=== PATIENT | male | born 1960 | race Caucasian/White ===

== ENCOUNTER 2019-11-03 13:01 | Outpatient (RCR) | payer SELFPAY ==
[2019-11-03 13:42] LABS: Prothrombin Time 22.4 Seconds (11.1-14.7)
== END 2020-02-01 23:59 | disposition home or self-care (01) ==
LOC: ANHLAB 13:01
PROVIDERS: Visit Provider Internal Medicine Cardiovascular Disease
DX: Z51.81 Encounter for therapeutic drug level monitoring (principal); I48.91 Unspecified atrial fibrillation; Z79.01 Long term (current) use of anticoagulants
CPT/HCPCS: 36415; 85610

== ENCOUNTER 2021-08-09 11:00 | Outpatient (CLI) | payer SELFPAY ==
--- NOTE | ~2021-08-09 | XR_ITS ---
EXAMINATION: XR chest 2V DATE: 08/09/2021 11:36 INDICATION: Long-term amiodarone use TECHNIQUE: PA and lateral views of the chest are obtained. COMPARISON: 09/26/2019 FINDINGS: The lungs are free of acute opacities. Calcified pulmonary nodules are consistent with old granulomatous disease. There is no pleural effusion or pneumothorax. The cardiomediastinal silhouett e is normal. There is moderate thoracic spondylosis. IMPRESSION: 1. No acute cardiopulmonary abnormality. Reviewed, dictated and finalized at location B.
[2021-08-09 11:59] LABS: Basophils Percent Auto 0.5 % (0.2-1.2); Eosinophils Absolute Auto 0.2 K/mm3 (0-0.3); Eosinophils Percent Auto 2.4 % (0-4.4); Hematocrit 47.5 % (42.0-52.0); Hemoglobin 15.7 g/dL (14.0-18.0); Immature Granulocyte Absolute 0.02 K/mm3 (0.00-0.031); Immature Granulocyte Percent A 0.3 % (0-0.5); Lymphocytes Absolute Auto 2.46 K/mm3 (0.9-3.2); Lymphocytes Percent Auto 32.9 % (18.3-44.2); Mean Corpuscular HGB Conc 33.1 g/dl (32-36); Mean Corpuscular Hemoglobin 30.5 pg (26-34); Mean Corpuscular Volume 92.2 fl (80-100); Mean Platelet Volume 11.3 fl (7.4-10.4); Monocytes Percent Auto 12.9 % (2.6-8.5); Neutrophils Absolute Auto 3.8 K/mm3 (1.3-6.7); Platelet Count Result 185 k/mm3 (150-375); Red Blood Count 5.15 M/mm3 (4.6-6.20); Red Cell Distribution Width 13.4 % (11.5-14.5); White Blood Count 7.5 K/mm3 (4.5-10.0)
[2021-08-09 12:13] LABS: Anion Gap 8 mmol/L (8-16); Blood Urea Nitrogen 16 mg/dL (9-20); Calcium 9.8 mg/dL (8.4-10.2); Carbon Dioxide 26 mmol/L (22-30); Chloride 107 mmol/L (98-107); Estimated Glomerular Filt Rate > 60; Glucose 98 mg/dL (65-110); Potassium 3.8 mmol/L (3.4-5.0); Sodium 141 mmol/L (137-145)
[2021-08-09 15:12] LABS: Free T4 Free Thyroxine Reflex 1.39 ng/dL (0.78-2.19)
[2021-08-09 16:04] LABS: Total Triiodothyronine (T3) 1.56 NG/ML (0.97-1.69)
== END 2021-08-09 11:01 | disposition home or self-care (01) ==
PROVIDERS: Visit Provider Internal Medicine Cardiovascular Disease
DX: I48.0 Paroxysmal atrial fibrillation (principal); I10 Essential (primary) hypertension; Z51.81 Encounter for therapeutic drug level monitoring; Z79.899 Other long term (current) drug therapy; Z91.89 Other specified personal risk factors, not elsewhere classified; M47.814 Spondylosis without myelopathy or radiculopathy, thoracic region
CPT/HCPCS: 36415; 71046; 80048; 84439; 84443; 84480; 85025

== ENCOUNTER 2023-06-27 17:41 | Outpatient (CLI) | payer OTHER, SELFPAY ==
[2023-06-27 18:08] LABS: Basophils Percent Auto 0.5 % (0.2-1.2); Eosinophils Absolute Auto 0.3 K/mm3 (0-0.3); Eosinophils Percent Auto 3.8 % (0-4.4); Hematocrit 47.7 % (42.0-52.0); Hemoglobin 15.3 g/dL (14.0-18.0); Immature Granulocyte Absolute 0.02 K/mm3 (0.00-0.031); Immature Granulocyte Percent A 0.2 % (0-0.5); Lymphocytes Absolute Auto 3.07 K/mm3 (0.9-3.2); Lymphocytes Percent Auto 37.6 % (18.3-44.2); Mean Corpuscular HGB Conc 32.1 g/dl (32-36); Mean Corpuscular Hemoglobin 30.7 pg (26-34); Mean Corpuscular Volume 95.6 fl (80-100); Mean Platelet Volume 10.4 fl (7.4-10.4); Monocytes Absolute Auto 1.1 K/mm3 (0.1-0.6); Neutrophils Absolute Auto 3.7 K/mm3 (1.3-6.7); Neutrophils Percent Auto 44.9 % (45.5-73.1); Platelet Count Result 173 k/mm3 (150-375); Red Blood Count 4.99 M/mm3 (4.6-6.20); Red Cell Distribution Width 13.4 % (11.5-14.5); White Blood Count 8.2 K/mm3 (4.5-10.0)
[2023-06-27 18:20] LABS: Anion Gap 12 mmol/L (8-16); Blood Urea Nitrogen 24 mg/dL (9-20); Calcium 9.7 mg/dL (8.4-10.2); Carbon Dioxide 24 mmol/L (22-30); Chloride 109 mmol/L (98-107); Cholesterol 205 mg/dL (0-200); Estimated Glomerular Filt Rate > 60; Glucose 102 mg/dL (65-110); HDL Direct 36 mg/dL; Potassium 4.1 mmol/L (3.4-5.0); Sodium 145 mmol/L (137-145); Triglycerides 156 mg/dL (<150)
[2023-06-27 18:31] LABS: LDL Cholesterol Direct 133 mg/dL
== END 2023-06-27 17:42 | disposition home or self-care (01) ==
LOC: ANHLAB 17:44
PROVIDERS: Visit Provider Internal Medicine Cardiovascular Disease
DX: I48.0 Paroxysmal atrial fibrillation (principal); I10 Essential (primary) hypertension
CPT/HCPCS: 36415; 80048; 80061; 84443; 85025

== ENCOUNTER 2023-08-18 11:26 | Emergency (ER) | payer OTHER, SELFPAY ==
--- NOTE | ~2023-08-18 | XR_ITS ---
XR chest 1V portable DATE: 08/18/2023 13:09 INDICATION: Shortness of breath. Hypertension. TECHNIQUE: 2 portable upright AP views on 08/18/2023 at 1305 hours COMPARISON: 08/09/2021 PA and lateral chest FINDINGS: There is pulmonary vascular redistribution which may indicate mild pulmonary venous hyperte nsion. No pulmonary consolidation, pleural effusion or pneumothorax is evident. Heart size appears borderline, not optimally evaluated on AP projection because of magnification. The re is aortic arch calcification and mild aortic unfolding. Diffuse idiopathic skeletal hyperostosis of the thoracic spine. IMPRESSION: Pulmonary vascular redistribution is suggested, which may indicate pulmonary venous hyper tension Aortic atherosclerosis. Reviewed, dictated and finalized at location A. IMPRESSION: Pulmonary vascular redistribution is suggested, which may indicate pulmonary venous hypertension Aortic atherosclerosis.
[2023-08-18 11:29] VITALS: BP 160/106; PULSE 78; RESP 20; TEMP 36; O2SAT 96
--- NOTE | 2023-08-18 12:35 | ED.RECABL ---
HPI - Recheck/Abnormal Lab/Rx General Chief Complaint: Recheck/Abnormal Lab/Rx Stated Complaint: htn Time Seen by Provider: 08/18/23 12:05 History of Present Illness HPI narrative: Patient is a 62-year-old male with a history of hypertension, paroxysmal A-fib presenting with hypertension. Patient states that he has been checking his blood pressure up to 10 times a day for the last month. States that this morning his blood pressure was 180/105 so he became concerned. States that it is never this high. States that he decided to come in for evaluation. He felt short of breath while walking into the hospital from his car. He denies chest pain, numbness or weakness, vision changes, nausea or vomiting. States that he had a mild headache this morning which is normal for him. No recent infectious symptoms. Denies recent medication changes. Related Data Allergies Allergy/AdvReac Type Severity Reaction Status Date / Time No Known Allergies Allergy Verified 07/12/18 07:57 Review of Systems Review of Systems: All systems reviewed & are unremarkable except as noted in HPI and below Exam Narrative: GENERAL: Well-appearing, well-nourished, and in no acute distress. HEAD: Normocephalic, atraumatic. EYES: PERRLA and EOMI. ENT: Grossly normal NECK: Supple. CHEST: Clear to auscultation. No respiratory distress. HEART: Regular rate and rhythm. Normal peripheral pulses. ABDOMEN: Soft, nontender, nondistended EXTREMITIES: Normal range of motion. No edema. SKIN: Warm, dry, no rash. NEURO: No focal deficits. Alert and oriented x3. PSYCH: Normal mood and affect. Course Vital Signs Vital signs: Vital Signs Temperature 96.8 F L 08/18/23 11:29 Pulse Rate 78 08/18/23 11:29 Respiratory Rate 20 08/18/23 11:29 Blood Pressure 160/106 H 08/18/23 11:29 Pulse Oximetry 96 08/18/23 11:29 Oxygen Delivery Room Air 08/18/23 11:29 Temperature 96.8 F L 08/18/23 11:29 Pulse Rate 86 08/18/23 15:26 Respiratory Rate 16 08/18/23 15:26 Blood Pressure 148/74 H 08/18/23 15:26 Pulse Oximetry 98 08/18/23 15:26 Oxygen Delivery Room Air 08/18/23 11:29 MDM - Recheck/Abnormal Lab/Rx MDM Narrative Medical decision making narrative: Patient is a 62-year-old male presenting with asymptomatic hypertension. Blood pressure is elevated here in the 150s to 160s over 100. Remainder of vitals are within normal limits. Exam is unremarkable. EKG per my interpretation shows atrial fibrillation with a ventricular rate of 76. Patient has a history of atrial fibrillation, he has a [id number] score of 1, he is on aspirin per his care management assistant. Blood work is unremarkable. Normal renal function. Troponin undetectable. Chest x-ray without acute abnormalities. Patient has been observed for several hours. Blood pressures have been ranging between the 130s to 150s systolic. He remains asymptomatic. Feel he is safe for outpatient management of asymptomatic hypertension. He states that he does not have a primary care physician so we will provide a phone number for 1. Advised that he also follow-up with his care management assistant. Appropriate return precautions given. Patient voiced understanding and is agreeable with plan. Discharged in stable condition. Differential Diagnosis Differential diagnosis: Likely other (Asymptomatic hypertension, exertional dyspnea) Medical Records Attestation: I reviewed the patient's medical records. Lab Data Attestation: I reviewed the patient's lab results. 08/18/23 13:00 08/18/23 12:59 Labs: Lab Results 08/18/23 08/18/23 08/18/23 Range/Units 12:59 13:00 16:00 WBC 6.1 (4.5-10.0) K/mm3 RBC 4.86 (4.6-6.20) M/mm3 Hgb 15.5 (14.0-18.0) g/dL Hct 45.9 (42.0-52.0) % MCV 94.4 (80-100) fl MCH 31.9 (26-34) pg MCHC 33.8 (32-36) g/dl RDW 13.1 (11.5-14.5) % Plt Count 169 (150-375) k/mm3 MPV 10.6 H (7.4-10.4) fl Immature Gran % (Au
--- NOTE | 2023-08-18 12:40 | ECG_ITS ---
Measurements Intervals [place] Rate: 76 P: [place]: 0 QRS: -30 QRSD: 105 T: 9 QT: 402 QTc: 452 Interpretive Statements ATRIAL FIBRILLATION VOLTAGE CRITERIA FOR LVH INFERIOR INFARCT, AGE INDETERMINATE BASELINE ARTIFACT- I, II, III, AVL, V1, V4-V6 ABNORMAL ECG NO PREVIOUS ECG AVAILABLE FOR COMPARISON Electronically Signed On 08-18-2023 16:00:05 CDT by Scot Rich D.O.
[2023-08-18 12:52] VITALS: BP 138/83; PULSE 75; RESP 15; O2SAT 97
[2023-08-18 13:08] LABS: Basophils Percent Auto 0.5 % (0.2-1.2); Eosinophils Absolute Auto 0.2 K/mm3 (0-0.3); Eosinophils Percent Auto 3.9 % (0-4.4); Hematocrit 45.9 % (42.0-52.0); Hemoglobin 15.5 g/dL (14.0-18.0); Immature Granulocyte Absolute 0.01 K/mm3 (0.00-0.031); Immature Granulocyte Percent A 0.2 % (0-0.5); Lymphocytes Absolute Auto 1.52 K/mm3 (0.9-3.2); Lymphocytes Percent Auto 24.8 % (18.3-44.2); Mean Corpuscular HGB Conc 33.8 g/dl (32-36); Mean Corpuscular Hemoglobin 31.9 pg (26-34); Mean Corpuscular Volume 94.4 fl (80-100); Mean Platelet Volume 10.6 fl (7.4-10.4); Monocytes Absolute Auto 0.6 K/mm3 (0.1-0.6); Monocytes Percent Auto 9.9 % (2.6-8.5); Neutrophils Absolute Auto 3.7 K/mm3 (1.3-6.7); Neutrophils Percent Auto 60.7 % (45.5-73.1); Platelet Count Result 169 k/mm3 (150-375); Red Blood Count 4.86 M/mm3 (4.6-6.20); Red Cell Distribution Width 13.1 % (11.5-14.5); White Blood Count 6.1 K/mm3 (4.5-10.0)
[2023-08-18 13:15] LABS: Prothrombin Time 13.9 Seconds (11.1-14.7)
[2023-08-18 13:16] LABS: Partial Thromboplastin Time 24.2 SECONDS (22.3-36.8)
[2023-08-18 13:17] LABS: Alanine Aminotransferase 21 U/L (6-50); Albumin Level 4.1 g/dL (3.5-5.1); Alkaline Phosphatase 69 U/L (38-126); Anion Gap 7 mmol/L (8-16); Aspartate Amino Transferase 28 U/L (17-59); Bilirubin,Total 0.9 mg/dL (0.2-1.3); Blood Urea Nitrogen 18 mg/dL (9-20); Calcium 9.2 mg/dL (8.4-10.2); Carbon Dioxide 26 mmol/L (22-30); Chloride 108 mmol/L (98-107); Estimated CRCL calculation 132 ml/min; Estimated Glomerular Filt Rate > 60; Glucose 119 mg/dL (65-110); Potassium 3.9 mmol/L (3.4-5.0); Sodium 141 mmol/L (137-145)
[2023-08-18 13:29] LABS: NT Pro B Type Natriuretic Pept 634 pg/mL (19.9-100); Troponin I < 0.012 ng/mL (0.000-0.034)
[2023-08-18 14:42] VITALS: BP 137/82; PULSE 85; RESP 18; O2SAT 96
[2023-08-18 15:26] VITALS: BP 148/74; PULSE 86; RESP 16; O2SAT 98
== END 2023-08-18 15:27 | disposition home or self-care (01) ==
PROVIDERS: Emergency Provider Emergency Medicine
DX: I10 Essential (primary) hypertension (principal); R06.02 Shortness of breath; I48.0 Paroxysmal atrial fibrillation
CPT/HCPCS: 36415; 71045; 80053; 83880; 84484; 85025; 85610; 85730; 93005; 99284

== ENCOUNTER → 2023-08-30 15:02 | Outpatient (CLI) | payer OTHER, SELFPAY ==
--- NOTE | ~2023-08-30 | XR_ITS ---
EXAMINATION: XR lumbar spine min 4V DATE: 08/30/2023 16:25 INDICATION: Low back pain TECHNIQUE: Anteroposterior, lateral, and bilateral oblique views of the lumbar spine, and cone-down l ateral view of the lumbosacral junction were obtained. COMPARISON: 10/04/2007 FINDINGS: Bone alignment is normal. There is no fracture. There is mild loss of intervertebral disc s pace height at L4-5 and moderate loss of disc space height throughout the remainder of the lumbar spi ne. There is severe facet joint osteoarthritis of the lower lumbar spine. Degenerative osteophytes pr oject from the anterior endplates of multiple vertebral bodies. There is advanced osteoarthritis of t he right hip and moderate osteoarthritis of the left hip. IMPRESSION: 1. Moderate lumbar spondylosis without acute findings. Reviewed, dictated and finalized at location F.
--- NOTE | ~2023-08-30 | XR_ITS ---
XR abdomen/kub 1V 08/30/2023 16:25 Indication: Hematuria Procedure: KUB Comparison: 02/24/2023 Findings: Moderate colonic fecal loading. Kidneys are obscured by bowel content. There are pelvic phl eboliths. There are severe lumbar spondylosis. There are severe osteoarthritis of the hips. No acute abdominal abnormality. Impression: 1: No acute abdominal abnormality. Reviewed, dictated and finalized at location B. Impression: 1: No acute abdominal abnormality.
--- NOTE | ~2023-08-30 | XR_ITS ---
EXAMINATION: XR hip BI wo pelvis INDICATION: Bilateral hip pain TECHNIQUE: Two views of each hip are obtained. COMPARISON: None available FINDINGS: There is advanced osteoarthritis of the right hip and moderate osteoarthritis of the left h ip. There is no fracture. Phleboliths are noted in the pelvis. IMPRESSION: 1. Moderate left and advanced right hip osteoarthritis. Reviewed, dictated and finalized at location F.
== END ==
PROVIDERS: PCP Family Medicine; Visit Provider Family Medicine
DX: M54.50 Low back pain, unspecified (principal); R31.9 Hematuria, unspecified; M47.896 Other spondylosis, lumbar region; M16.0 Bilateral primary osteoarthritis of hip
CPT/HCPCS: 72110; 73521; 74018

== ENCOUNTER 2023-08-30 20:01 | Outpatient (NON) | payer OTHER, SELFPAY ==
[2023-08-31 00:43] LABS: Appearance Urine Clear (Clear); Bilirubin Urine Negative (Negative); Blood Urine Trace-lysed (Negative); Color Urine Yellow (Yellow); Glucose Urine UA Negative (Negative); Ketones Urine Negative (Negative); Leukocyte Esterase Ur Negative LEU/UL (NEGATIVE); Nitrate Urine Negative (Negative); Protein Urine 2+ mg/dL (Negative); Specific Grav Ur >= 1.030 (1.001-1.035); Urobilinogen Urine 0.2 mg/dL (<2.0); pH Urine 5.5 (5.0-9.0)
[2023-08-31 02:14] LABS: Add Urine Microscopic? YES; RBC Urine 0-2 /hpf (0-2); WBC Urine 0-3 /hpf (0-3)
== END 2023-08-30 20:02 | disposition home or self-care (01) ==
LOC: ANHLAB 20:55
PROVIDERS: PCP Family Medicine; Visit Provider Family Medicine
DX: R31.9 Hematuria, unspecified (principal)
CPT/HCPCS: 81001